=== PATIENT | male | born 1950 | race Caucasian/White ===

== ENCOUNTER 2023-11-18 12:21 | Outpatient (CLI) | payer OTHER | END 2023-11-18 12:24 | disposition home or self-care (01) | LOC: LAB 12:21 | PROVIDERS: ATTEND Urology | DX: R97.20 Elevated prostate specific antigen [PSA] (principal) ==

== ENCOUNTER 2023-12-02 07:23 | Outpatient (CLI) | payer OTHER | END 2023-12-02 07:26 | disposition home or self-care (01) | LOC: SONOGRAMA 07:23 | PROVIDERS: ATTEND Urology | DX: N42.31 Prostatic intraepithelial neoplasia (principal); N40.1 Benign prostatic hyperplasia with lower urinary tract symptoms; R97.20 Elevated prostate specific antigen [PSA] ==